=== PATIENT | male | born 1970 | race Caucasian/White ===

== ENCOUNTER 2017-08-02 00:17 | Emergency (ER) | payer OTHER ==
[2017-08-02 00:30] VITALS: BP 111/70
--- NOTE | 2017-08-02 00:58 | EDM.PDOC ---
ED HPI GENERAL MEDICAL PROBLEM - General Chief Complaint: General Stated Complaint: MEDICAL CLEARANCE Time Seen by Provider: 08/02/17 00:55 - History of Present Illness INITIAL COMMENTS - FREE TEXT/NARRATIVE: HISTORY AND PHYSICAL: History of present illness: Patient is 47-year-old white male with history of diabetes presents with concern of medical clearance per [facility] patient denies any other concern. Review of systems: As per history of present illness and below otherwise all systems reviewed and negative. Past medical history: As per history of present illness and as reviewed below otherwise noncontributory. Surgical history: As per history of present illness and as reviewed below otherwise noncontributory. Social history: No reported history of drug or alcohol abuse. Family history: As per history of present illness and as reviewed below otherwise noncontributory. Physical exam: HEENT: Atraumatic, normocephalic, pupils reactive, negative for conjunctival pallor or scleral icterus, mucous membranes moist, throat clear, neck supple, nontender, trachea midline. Lungs: Clear to auscultation, breath sounds equal bilaterally, chest nontender. Heart: S1S2, regular, negative for clicks, rubs, or JVD. Abdomen: Soft, nondistended, nontender. Negative for masses or hepatosplenomegaly. Negative for costovertebral tenderness. Pelvis: Stable nontender. Genitourinary: Deferred. Rectal: Deferred. Extremities: Atraumatic, negative for cords or calf pain. Neurovascular unremarkable. Neuro: Awake, alert, oriented. Cranial nerves II through XII unremarkable. Cerebellum unremarkable. Motor and sensory unremarkable throughout. Exam nonfocal. Diagnostics: None Therapeutics: None Impression: #1 medically clear for incarceration #2 history insulin dependent diabetes Definitive disposition and diagnosis as appropriate pending reevaluation and review of above. - Related Data Allergies Allergy/AdvReac Type Severity Reaction Status Date / Time No Known Allergies Allergy Verified 09/06/16 22:53 Home Meds: Home Meds Insulin NPH/Insulin Reg,Human [NovoLIN 70-30] 35 unit SUBCUT BID 05/01/15 [ History] Insulin Regular, Human [HumuLIN R] 0 unit SUBCUT BIDAC 05/01/15 [History] Insulin Isophane NPH, Human [NovoLIN N] 35 unit SUBCUT BIDAC #1 vial 09/07/16 [ Rx] Insulin Regular, Human [Novolin R] 1 unit SQ TID #1 vial 09/07/16 [Rx] Syring W-Ndl,Disp,Insul,0.3 ml [Insulin Syringe] 1 each SQ TID #20 disp.syrin [Rx] Past Medical History HEENT History: Reports: Other (See Below) Other HEENT History: broken/missing teeth Gastrointestinal History: Reports: None Musculoskeletal History: Reports: None Psychiatric History: Reports: None, Anxiety, Depression Endocrine/Metabolic History: Reports: Diabetes, Type I Hematologic History: Reports: None Dermatologic History: Reports: None - Infectious Disease History 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, MRSA - Past Surgical History HEENT Surgical History: Reports: Other (See Below) Social & Family History - Family History Family Medical History: Noncontributory Cardiac: Reports: Other (See Below) Other Cardiac Family History: heart disease Neurological: Reports: CVA - Tobacco Use Smoking Status *Q: Current Every Day Smoker Years of Tobacco use: 15 Packs/Tins Daily: 1 Used Tobacco, but Quit: No Second Hand Smoke Exposure: Yes - Recreational Drug Use Recreational Drug Use: No Drug Use in Last 12 Months: Yes Recreational Drug Type: Reports: Marijuana/Hashish Recreational Drug Use Frequency: Rarely Recreational Drug Last Use: two weeks ago ED ROS GENERAL - Review of Systems Review Of Systems: ROS reveals no pertinent complaints other than HPI. ED EXAM, GENERAL - Physical Exam Exam: See Below (See dictation) Course - Vital Signs Last Recorded V/S: Last Vital Signs Temp 36.2 C 08/02/17 00:19 Pulse 70 08/02/17 00:19 Resp 16 08/02/17 00:19 BP 111/70 08/02/17 00:19 Pulse Ox 95 08/02/17 00:19 - Orders/Labs/Meds Labs: Laboratory Tests 08/02/17 Range/Units 00:26 POC Glucose 92 (60-110) mg/dL Departure - Departure Time of Disposition: 00:57 Disposition: Home, Self-Care 01 Condition: Good Clinical Impression: Medical clearance for incarceration, Insulin dependent diabetes mellitus - Discharge Information Referrals: PCP,None [Primary Care Provider] - Additional Instructions: The following information is given to patients seen in the emergency department who are being discharged to home. This information is to outline your options for follow-up care. We provide all patients seen in our emergency department with a follow-up referral. The need for follow-up, as well as the timing and circumstances, are variable depending upon the specifics of your emergency department visit. If you don't have a primary care physician on staff, we will provide you with a referral. We always advise you to contact your personal physician following an emergency department visit to inform them of the circumstance of the visit and for follow-up with them and/or the need for any referrals to a consulting specialist. The emergency department will also refer you to a specialist when appropriate. This referral assures that you have the opportunity for followup care with a specialist. All of these measure are taken in an effort to provide you with optimal care, which includes your followup. Under all circumstances we always encourage you to contact your private physician who remains a resource for coordinating your care. When calling for followup care, please make the office aware that this follow-up is from your recent emergency room visit. If for any reason you are refused follow-up, please contact the [facility] emergency department at and asked to speak to the emergency department charge nurse. Insulin as prescribed follow-up primary medical doctor 1-2 days return as needed as discussed
== END 2017-08-02 01:00 | disposition home or self-care (01) ==
LOC: MW.ED 00:17
DX: Z02.89 Encounter for other administrative examinations (principal); E10.9 Type 1 diabetes mellitus without complications; F17.210 Nicotine dependence, cigarettes, uncomplicated; Z79.4 Long term (current) use of insulin
CPT/HCPCS: 82962; 99282; 99283

== ENCOUNTER 2018-07-15 02:39 | Emergency (ER) | payer OTHER ==
--- NOTE | 2018-07-15 02:52 | EDM.PDOC ---
ED HPI GENERAL MEDICAL PROBLEM - General Chief Complaint: General Stated Complaint: MEDICAL CLEARANCE Time Seen by Provider: 07/15/18 02:51 Source of Information: Reports: Patient History Limitations: Reports: No Limitations - History of Present Illness INITIAL COMMENTS - FREE TEXT/NARRATIVE: HISTORY AND PHYSICAL: History of present illness: 48-year-old male presenting to emergency department with law enforcement for medical clearance. Patient is a type I diabetic. Initial blood sugar was 119 in emergency department. States that he is in fairly good control however his last A1c was 8. He sees the [facility] for his medical care. He currently has no medical complaints. Denies any chest pain, palpitations, shortness breath, syncopal episodes, or focal neurologic episodes. Review of systems: As per history of present illness and below otherwise all systems reviewed and negative. Past medical history: As per history of present illness and as reviewed below otherwise noncontributory. Surgical history: As per history of present illness and as reviewed below otherwise noncontributory. Social history: No reported history of drug or alcohol abuse. Family history: As per history of present illness and as reviewed below otherwise noncontributory. Physical exam: HEENT: Atraumatic, normocephalic, pupils reactive, negative for conjunctival pallor or scleral icterus, mucous membranes moist, throat clear, neck supple, nontender, trachea midline. Lungs: Clear to auscultation, breath sounds equal bilaterally, chest nontender. Heart: S1S2, regular, negative for clicks, rubs, or JVD. Abdomen: Soft, nondistended, nontender. Negative for masses or hepatosplenomegaly. Negative for costovertebral tenderness. Pelvis: Stable nontender. Genitourinary: Deferred. Rectal: Deferred. Extremities: Atraumatic, negative for cords or calf pain. Neurovascular unremarkable. Neuro: Awake, alert, oriented. Cranial nerves II through XII unremarkable. Cerebellum unremarkable. Motor and sensory unremarkable throughout. Exam nonfocal. Diagnostics: [] Therapeutics: [] Impression: Medical clearance Plan: Patient's blood sugar was 119. He is a type I diabetic. Did instruct him to follow up with the [facility] for his basic medical care. In addition, I did tell him to return to the emergency department immediately if he has any new or worsening symptoms. Definitive disposition and diagnosis as appropriate pending reevaluation and review of above. - Related Data Allergies Allergy/AdvReac Type Severity Reaction Status Date / Time No Known Allergies Allergy Verified 07/15/18 02:52 Home Meds: Home Meds Insulin NPH/Insulin Reg,Human [NovoLIN 70-30] 45 unit SUBCUT BID 05/01/15 [ History] Insulin Regular, Human [HumuLIN R] 0 unit SUBCUT BIDAC 05/01/15 [History] Insulin Regular, Human [Novolin R] 1 unit SQ TID #1 vial 09/07/16 [Rx] Syring W-Ndl,Disp,Insul,0.3 ml [Insulin Syringe] 1 each SQ TID #20 disp.syrin [Rx] Insulin Isophane NPH, Human [NovoLIN N] 45 unit SUBCUT BIDAC 07/15/18 [History] Past Medical History HEENT History: Reports: Other (See Below) Other HEENT History: broken/missing teeth Gastrointestinal History: Reports: None Musculoskeletal History: Reports: None Psychiatric History: Reports: None, Anxiety, Depression Endocrine/Metabolic History: Reports: Diabetes, Type I Hematologic History: Reports: None Dermatologic History: Reports: None - Infectious Disease History 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 ED EXAM, GENERAL - Physical Exam Exam: See Below Departure - Departure Time of Disposition: 02:57 Disposition: DC/Tfer to Court of Law En 21 Condition: Good Clinical Impression: Medical clearance for incarceration - Discharge Information Referrals: PCP,None [Primary Care Provider] - Forms: ED Department Discharge Additional Instructions: My general discharge The following information is given to patients seen in the emergency department who are being discharged to home. This information is to outline your options for follow-up care. We provide all patients seen in our emergency department with a follow-up referral. The need for follow-up, as well as the timing and circumstances, are variable depending upon the specifics of your emergency department visit. If you don't have a primary care physician on staff, we will provide you with a referral. We always advise you to contact your personal physician following an emergency department visit to inform them of the circumstance of the visit and for follow-up with them and/or the need for any referrals to a consulting specialist. The emergency department will also refer you to a specialist when appropriate. This referral assures that you have the opportunity for follow-up care with a specialist. All of these measure are taken in an effort to provide you with optimal care, which includes your follow-up. Under all circumstances we always encourage you to contact your private physician who remains a resource for coordinating your care. When calling for follow-up care, please make the office aware that this follow-up is from your recent emergency room visit. If for any reason you are refused follow-up, please contact the [facility] Emergency Department at and asked to speak to the emergency department charge nurse. [facility] Return to emergency department if any new or worsening symptoms.
[2018-07-15 02:57] VITALS: BP 115/70
== END 2018-07-15 03:02 ==
LOC: MW.ED 02:39
DX: Z02.89 Encounter for other administrative examinations (principal); E10.9 Type 1 diabetes mellitus without complications
CPT/HCPCS: 82962; 99282

== ENCOUNTER 2018-07-17 01:31 | Emergency (ER) | payer OTHER ==
--- NOTE | 2018-07-17 01:33 | EDM.PDOC ---
ED HPI GENERAL MEDICAL PROBLEM - General Stated Complaint: LOW BLOOD SUGAR Time Seen by Provider: 07/17/18 01:32 Source of Information: Reports: Patient History Limitations: Reports: No Limitations - History of Present Illness INITIAL COMMENTS - FREE TEXT/NARRATIVE: HISTORY AND PHYSICAL: History of present illness: 48-year-old male presenting to emergency department from longterm secondary to low blood sugar with past medical history type 1 diabetes. Patient states that he could tell his blood sugar was low and notified staff. States that he did take his sliding scale 3 units R after dinner tonight and 35 units of Novolin N. Denies any loss of consciousness or altered mental status. When EMS arrived his blood sugar was 27. They did give him oral glucose at that time. On arrival in the emergency department blood sugar was 97. We did give him some juice as well as a sandwich. Patient did feel significantly better. Denies any chest pain, palpitations, shortness of breath, syncopal episodes, or focal neurologic deficits. Repeat CBC and CMP showed a blood sugar of 44. Patient was given juice and dextrose gel. Repeat Blood sugar 130. Patient states he does have times when his blood sugar runs low and obviously being in longterm and not on his normal routine affects it. He does normally take 45 units of Novolin N. Repeat sugar 40 minutes later was 139. Review of systems: As per history of present illness and below otherwise all systems reviewed and negative. Past medical history: As per history of present illness and as reviewed below otherwise noncontributory. Surgical history: As per history of present illness and as reviewed below otherwise noncontributory. Social history: No reported history of drug or alcohol abuse. Family history: As per history of present illness and as reviewed below otherwise noncontributory. Physical exam: HEENT: Atraumatic, normocephalic, pupils reactive, negative for conjunctival pallor or scleral icterus, mucous membranes moist, throat clear, neck supple, nontender, trachea midline. Lungs: Clear to auscultation, breath sounds equal bilaterally, chest nontender. Heart: S1S2, regular, negative for clicks, rubs, or JVD. Abdomen: Soft, nondistended, nontender. Negative for masses or hepatosplenomegaly. Negative for costovertebral tenderness. Pelvis: Stable nontender. Genitourinary: Deferred. Rectal: Deferred. Extremities: Atraumatic, negative for cords or calf pain. Neurovascular unremarkable. Neuro: Awake, alert, oriented. Cranial nerves II through XII unremarkable. Cerebellum unremarkable. Motor and sensory unremarkable throughout. Exam nonfocal. Diagnostics: CBC, CMP Therapeutics: Juice, sandwich Impression: Hypoglycemia in a type I diabetic Plan: Please see above H&P. Patient was observed and repeat sugar showed stabilization of blood sugars in the 130s. Patient was discharged back to law enforcement with instructions to follow-up with primary care provider which is the [facility] and return to emergency department if he has any new or worsening symptoms. Definitive disposition and diagnosis as appropriate pending reevaluation and review of above. - Related Data Allergies Allergy/AdvReac Type Severity Reaction Status Date / Time No Known Allergies Allergy Verified 07/17/18 02:12 Home Meds: Home Meds Insulin NPH/Insulin Reg,Human [NovoLIN 70-30] 35 unit SUBCUT BID 05/01/15 [ History] Insulin Regular, Human [Novolin R] 1 unit SQ QID 07/17/18 [History] Past Medical History HEENT History: Reports: Other (See Below) Other HEENT History: broken/missing teeth Cardiovascular History: Reports: None Respiratory History: Reports: None Gastrointestinal History: Reports: None Genitourinary History: Reports: None Musculoskeletal History: Reports: None Psychiatric History: Reports: None, Anxiety, Depression Endocrine/Metabolic History: Reports: Diabetes, Type I Hematologic History: Reports: None Oncologic (Cancer) History: Reports: None Dermatologic History: Reports: None - Infectious Disease History 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 ED EXAM, GENERAL - Physical Exam Exam: See Below Course - Vital Signs Last Recorded V/S: Last Vital Signs Temp 97.6 F 07/17/18 01:31 Pulse 72 07/17/18 01:31 Resp 18 07/17/18 01:31 BP 124/81 07/17/18 01:31 Pulse Ox 96 07/17/18 01:31 - Orders/Labs/Meds Orders: Active Orders 24 hr Category Date Time Status Blood Glucose Check, Bedside [RC] ONETIME Care 07/17/18 01:30 Active Blood Glucose Check, Bedside [RC] ONETIME Care 07/17/18 02:35 Active Blood Glucose Check, Bedside [RC] ONETIME Care 07/17/18 03:34 Active Labs: Laboratory Tests 07/17/18 07/17/18 07/17/18 Range/Units 01:30 01:30 02:35 WBC 9.10 (4.0-11.0) K/uL RBC 4.64 (4.50-5.90) M/uL Hgb 14.7 (13.0-17.0) g/dL Hct 43.2 (38.0-50.0) % MCV 93.1 (80.0-98.0) fL MCH 31.7 (27.0-32.0) pg MCHC 34.0 (31.0-37.0) g/dL RDW Std Deviation 47.6 (28.0-62.0) fl RDW Coeff of Deo 14 (11.0-15.0) % Plt Count 235 (150-400) K/uL MPV 11.70 (7.40-12.00) fL Neut % (Auto) 47.3 L (48.0-80.0) % Lymph % (Auto) 41.6 H (16.0-40.0) % [place] % (Auto) 9.5 (0.0-15.0) % Eos % (Auto) 1.3 (0.0-7.0) % Baso % (Auto) 0.3 (0.0-1.5) % Neut # (Auto) 4.3 (1.4-5.7) K/uL Lymph # (Auto) 3.8 H (0.6-2.4) K/uL [place] # (Auto) 0.9 H (0.0-0.8) K/uL Eos # (Auto) 0.1 (0.0-0.7) K/uL Baso # (Auto) 0.0 (0.0-0.1) K/uL Nucleated RBC % 0.0 /100WBC Nucleated RBCs # 0 K/uL Sodium 142 (136-148) mmol/L Potassium 3.6 (3.5-5.1) mmol/L Chloride 108 H (98-107) mmol/L Carbon Dioxide 28.3 (21.0-32.0) mmol/L BUN 17 (7.0-18.0) mg/dL Creatinine 0.8 (0.8-1.3) mg/dL Est Cr Clr Drug Dosing 132.03 mL/min Estimated GFR (MDRD) > 60.0 ml/min Glucose 106 (74-106) mg/dL POC Glucose 44 L (60-110) mg/dL Calcium 8.6 (8.5-10.1) mg/dL Total Bilirubin 0.5 (0.2-1.0) mg/dL AST 11 L (15-37) IU/L ALT 23 (14-63) IU/L Alkaline Phosphatase 68 (46-116) U/L Total Protein 6.3 L (6.4-8.2) g/dL Albumin 3.4 (3.4-5.0) g/dL Globulin 2.9 (2.0-3.5) g/dL Albumin/Globulin Ratio 1.2 L (1.3-2.8) 07/17/18 07/17/18 Range/Units 03:35 04:13 WBC (4.0-11.0) K/uL RBC (4.50-5.90) M/uL Hgb (13.0-17.0) g/dL Hct (38.0-50.0) % MCV (80.0-98.0) fL MCH (27.0-32.0) pg MCHC (31.0-37.0) g/dL RDW Std Deviation (28.0-62.0) fl RDW Coeff of Deo (11.0-15.0) % Plt Count (150-400) K/uL MPV (7.40-12.00) fL Neut % (Auto) (48.0-80.0) % Lymph % (Auto) (16.0-40.0) % [place] % (Auto) (0.0-15.0) % Eos % (Auto) (0.0-7.0) % Baso % (Auto) (0.0-1.5) % Neut # (Auto) (1.4-5.7) K/uL Lymph # (Auto) (0.6-2.4) K/uL [place] # (Auto) (0.0-0.8) K/uL Eos # (Auto) (0.0-0.7) K/uL Baso # (Auto) (0.0-0.1) K/uL Nucleated RBC % /100WBC Nucleated RBCs # K/uL Sodium (136-148) mmol/L Potassium (3.5-5.1) mmol/L Chloride (98-107) mmol/L Carbon Dioxide (21.0-32.0) mmol/L BUN (7.0-18.0) mg/dL Creatinine (0.8-1.3) mg/dL Est Cr Clr Drug Dosing mL/min Estimated GFR (MDRD) ml/min Glucose (74-106) mg/dL POC Glucose 130 H 139 H (60-110) mg/dL Calcium (8.5-10.1) mg/dL Total Bilirubin (0.2-1.0) mg/dL AST (15-37) IU/L ALT (14-63) IU/L Alkaline Phosphatase (46-116) U/L Total Protein (6.4-8.2) g/dL Albumin (3.4-5.0) g/dL Globulin (2.0-3.5) g/dL Albumin/Globulin Ratio (1.3-2.8) Meds: Medications Discontinued Medications Generic Name Dose Route Start Last Admin Trade Name Freq PRN Reason Stop Dose Admin Dextrose 31 gm 07/17/18 02:36 07/17/18 03:11 Insta-Glucose PO 07/17/18 02:37 31 gm NOW STA Administration Departure - Departure Time of Disposition: 04:29 Disposition: DC/Tfer to Court of Law En 21 Condition: Good Clinical Impression: Hypoglycemia due to type 1 diabetes mellitus - Discharge Information Referrals: PCP,None [Primary Care Provider] - Additional Instructions: My general discharge The following information is given to patients seen in the emergency department who are being discharged to home. This information is to outline your options for follow-up care. We provide all patients seen in our emergency department with a follow-up referral. The need for follow-up, as well as the timing and circumstances, are variable depending upon the specifics of your emergency department visit. If you don't have a primary care physician on staff, we will provide you with a referral. We always advise you to contact your personal physician following an emergency department visit to inform them of the circumstance of the visit and for follow-up with them and/or the need for any referrals to a consulting specialist. The emergency department will also refer you to a specialist when appropriate. This referral assures that you have the opportunity for follow-up care with a specialist. All of these measure are taken in an effort to provide you with optimal care, which includes your follow-up. Under all circumstances we always encourage you to contact your private physician who remains a resource for coordinating your care. When calling for follow-up care, please make the office aware that this follow-up is from your recent emergency room visit. If for any reason you are refused follow-up, please contact the [facility] Emergency Department at and asked to speak to the emergency department charge nurse. [facility] [address] [place] [id number] Continue to take your medications as prescribed. Return to emergency department if any new or worsening symptoms. - My Orders Last 24 Hours: My Active Orders 07/17/18 01:30 Blood Glucose Check, Bedside [RC] ONETIME 07/17/18 02:35 Blood Glucose Check, Bedside [RC] ONETIME 07/17/18 03:34 Blood Glucose Check, Bedside [RC] ONETIME - Assessment/Plan Last 24 Hours: My Active Orders 07/17/18 01:30 Blood Glucose Check, Bedside [RC] ONETIME 07/17/18 02:35 Blood Glucose Check, Bedside [RC] ONETIME 07/17/18 03:34 Blood Glucose Check, Bedside [RC] ONETIME
[2018-07-17 02:36] LABS: CHLORIDE,CL 108 mmol/L (98-107); SODIUM,NA 142 mmol/L (136-148)
[2018-07-17] MEDS ORDERED: DEXTROSE PO STA (02:36)
[2018-07-17 04:45] VITALS: BP 140/83
== END 2018-07-17 04:45 ==
LOC: MW.ED 01:31
DX: E10.649 Type 1 diabetes mellitus with hypoglycemia without coma (principal)
CPT/HCPCS: 80053; 82962; 85025; 99285; A9270; 99283

== ENCOUNTER 2019-11-26 18:10 | Emergency (ER) | payer OTHER ==
[2019-11-26 18:21] VITALS: PULSE 70
[2019-11-26] MEDS ORDERED: Lidocaine 2% Viscous Solution 15 ML Cup PO ONE (18:27)
[2019-11-26] MEDS ORDERED: Benzocaine 20% Topical Spray UD MUCMEM ONE (18:27)
--- NOTE | 2019-11-26 18:30 | EDM.PDOC ---
ED HPI GENERAL MEDICAL PROBLEM - General Chief Complaint: General Stated Complaint: TOOTHACHE Time Seen by Provider: 11/26/19 18:11 Source of Information: Reports: Patient History Limitations: Reports: No Limitations - History of Present Illness INITIAL COMMENTS - FREE TEXT/NARRATIVE: HISTORY AND PHYSICAL: History of present illness: Patient is a 49-year-old male who presents to the ED today with concern of bottom right tooth pain that has been ongoing off and on over the past 1 week. Patient states he has had dental abscess in the past which she states this feels like the beginning of a potential dental abscess. Patient states he does have an appointment on Tuesday in order to get this tooth removed. Patient states he has been taking [id number] ibuprofen with some relief of symptoms. Patient denies any other symptoms or concerns. Patient denies fever, chills, chest pain, shortness of breath, or cough. Denies headache, neck stiff ness, change in vision, syncope, or near syncope. Denies nausea, vomiting, abdominal pain, diarrhea, constipation, or dysuria. Has not noted any blood in urine or stool. Patient has been eating and drinking appropriately. Review of systems: As per history of present illness and below otherwise all systems reviewed and negative. Past medical history: As per history of present illness and as reviewed below otherwise noncontributory. Surgical history: As per history of present illness and as reviewed below otherwise noncontributory. Social history: See social history for further information Family history: As per history of present illness and as reviewed below otherwise noncontributory. Physical exam: General: Patient is alert, oriented, and in no acute distress. Patient sitting comfortably on exam table. HEENT: Atraumatic, normocephalic, pupils equal and reactive bilaterally, negative for conjunctival pallor or scleral icterus, mucous membranes moist, TMs normal bilaterally, throat clear, neck supple, nontender, trachea midline. No drooling or trismus noted. No meningeal signs. No hot potato voice noted. Tooth #31 is painful to palpation with edema of the surrounding gumline. No adjacent edema of the mandible. Patient does have full range of motion of the jaw without pain or difficulty. Generalized poor dentition Lungs: Clear to auscultation, breath sounds equal bilaterally, chest nontender. Heart: S1S2, regular rate and rhythm without overt murmur Abdomen: Soft, nondistended, nontender. Negative for masses or hepatosplenomegaly. Negative for costovertebral tenderness. Pelvis: Stable nontender. Genitourinary: Deferred. Rectal: Deferred. Skin: Intact, warm, dry. No lesions or rashes noted. Extremities: Atraumatic, negative for cords or calf pain. Neurovascular unremarkable. Neuro: Awake, alert, oriented. Cranial nerves II through XII unremarkable. Cerebellum unremarkable. Motor and sensory unremarkable throughout. Exam nonfocal. Notes: Discussed importance for follow-up with a dentist. Voices understanding and is agreeable to plan of care. Denies any further questions or concerns at this time. Diagnostics: None Therapeutics: Dental balls Prescription: Clindamycin Impression: Dental abscess Plan: 1. Please take medication as prescribed. 2. Tylenol and/or ibuprofen as directed and as needed for pain management. 3. "Tooth Balls" have been given to you; apply along the gumline every 2-3 hours as needed. Do not swallow these; external use only. 4. Follow-up with a dentist for definitive care. Return to the ED as needed and as discussed. Definitive disposition and diagnosis as appropriate pending reevaluation and review of above. right lower dental pain Pain Score (Numeric/FACES): 10 - Related Data Allergies Allergy/AdvReac Type Severity Reaction Status Date / Time No Known Allergies Allergy Verified 07/17/18 02:12 Home Meds: Home Meds Insulin NPH/Insulin Reg,Human [NovoLIN 70-30] 35 unit SUBCUT BID 05/01/15 [ History] Insulin Regular, Human [Novolin R] 1 unit SQ QID 07/17/18 [History] Clindamycin HCl 300 mg PO TID 7 Days #21 capsule 11/26/19 [Rx] Past Medical History HEENT History: Reports: Other (See Below) Other HEENT History: broken/missing teeth Cardiovascular History: Reports: None Respiratory History: Reports: None Gastrointestinal History: Reports: None Genitourinary History: Reports: None Musculoskeletal History: Reports: None Psychiatric History: Reports: None Endocrine/Metabolic History: Reports: Diabetes, Type I Hematologic History: Reports: None Oncologic (Cancer) History: Reports: None Dermatologic History: Reports: None - Infectious Disease History 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, MRSA - Past Surgical History HEENT Surgical History: Reports: Other (See Below) Social & Family History - Family History Family Medical History: Noncontributory Cardiac: Reports: Other (See Below) Other Cardiac Family History: heart disease Neurological: Reports: CVA - Tobacco Use Smoking Status *Q: Current Every Day Smoker Years of Tobacco use: 20 Packs/Tins Daily: 0.5 - Recreational Drug Use Recreational Drug Use: Yes Drug Use in Last 12 Months: Yes Recreational Drug Type: Reports: Marijuana/Hashish Recreational Drug Use Frequency: Socially ED ROS GENERAL - Review of Systems Review Of Systems: Comprehensive ROS is negative, except as noted in HPI. ED EXAM, GENERAL - Physical Exam Exam: See Below (see dictation) Course - Vital Signs Last Recorded V/S: Last Vital Signs Temp 97.4 F 11/26/19 18:18 Pulse 70 11/26/19 18:18 Resp 16 11/26/19 18:18 BP 146/92 H 11/26/19 18:18 Pulse Ox 98 11/26/19 18:18 Departure - Departure Time of Disposition: 18:29 Disposition: Home, Self-Care 01 Clinical Impression: Dental abscess - Discharge Information Prescriptions: Clindamycin HCl 300 mg PO TID 7 Days #21 capsule Referrals: [facility] [Primary Care Provider] - Additional Instructions: The following information is given to patients seen in the emergency department who are being discharged to home. This information is to outline your options for follow-up care. We provide all patients seen in our emergency department with a follow-up referral. The need for follow-up, as well as the timing and circumstances, are variable depending upon the specifics of your emergency department visit. If you don't have a primary care physician on staff, we will provide you with a referral. We always advise you to contact your personal physician following an emergency department visit to inform them of the circumstance of the visit and for follow-up with them and/or the need for any referrals to a consulting specialist. The emergency department will also refer you to a specialist when appropriate. This referral assures that you have the opportunity for follow-up care with a specialist. All of these measure are taken in an effort to provide you with optimal care, which includes your follow-up. Under all circumstances we always encourage you to contact your private physician who remains a resource for coordinating your care. When calling for follow-up care, please make the office aware that this follow-up is from your recent emergency room visit. If for any reason you are refused follow-up, please contact the [facility] at and asked to speak to the emergency department charge nurse. [facility] [address] [place] [address] [id number] 1. Please take medication as prescribed. 2. Tylenol and/or ibuprofen as directed and as needed for pain management. 3. "Tooth Balls" have been given to you; apply along the gumline every 2-3 hours as needed. Do not swallow these; external use only. 4. Follow-up with a dentist for definitive care. Return to the ED as needed and as discussed. Sepsis Event Note - Evaluation Sepsis Screening Result: No Definite Risk - Focused Exam Vital Signs: Vital Signs Temp Pulse Resp BP Pulse Ox 11/26/19 18:18 97.4 F 70 16 146/92 H 98 Date Exam was Performed: 11/26/19 Time Exam was Performed: 18:26
[2019-11-26 18:44] VITALS: BP 154/93
== END 2019-11-26 18:43 | disposition home or self-care (01) ==
LOC: MW.ED 18:10
DX: K04.7 Periapical abscess without sinus (principal); F17.210 Nicotine dependence, cigarettes, uncomplicated; E10.9 Type 1 diabetes mellitus without complications
CPT/HCPCS: 99282; A9270

== ENCOUNTER 2019-12-01 22:33 | Emergency (ER) | payer OTHER ==
[2019-12-02] MEDS ORDERED: Sodium Chloride 0.9% 1,000 ML IV ONE (01:45)
[2019-12-02] MEDS ORDERED: Ondansetron 4 MG/2 ML SDV IVPUSH ONE (01:45)
[2019-12-02] MEDS ORDERED: Cefepime 2 GM in Premix Bag 1 BAG IV ONE (01:49)
[2019-12-02 02:23] LABS: BLOOD UREA NITROGEN,BUN 8 mg/dL (7.0-18.0); CHLORIDE,CL 100 mmol/L (98-107); GLUCOSE RANDOM 321 mg/dL (74-106); POTASSIUM,K 3.7 mmol/L (3.5-5.1); SODIUM,NA 137 mmol/L (136-148)
[2019-12-02 02:24] VITALS: BP 119/72; PULSE 77
[2019-12-02] MEDS ORDERED: metroNIDAZOLE/Normal Saline 500 MG in Premix Bag 1 BAG IV ONE (02:27)
[2019-12-02] MEDS ORDERED: metroNIDAZOLE/Normal Saline 100 ML ONE (02:29)
--- NOTE | 2019-12-02 02:33 | EDM.PDOC ---
ED HPI GENERAL MEDICAL PROBLEM - General Chief Complaint: ENT Problem Stated Complaint: THROAT INFECTION Time Seen by Provider: 12/02/19 01:39 - History of Present Illness INITIAL COMMENTS - FREE TEXT/NARRATIVE: Pt with a pmh of type 1 DM presents with throat swelling, difficulty swallowing , fever and facial swelling. Pt had tooth 30 pulled due to a periapical abscess 4 days ago and has been on clindamycin. symptom started to worsen over the last 24 hours. No drooling and pt still able to tolerated po liquids. right lower jaw pain Pain Score (Numeric/FACES): 8 - Related Data Allergies Allergy/AdvReac Type Severity Reaction Status Date / Time No Known Allergies Allergy Verified 07/17/18 02:12 Home Meds: Home Meds Insulin NPH/Insulin Reg,Human [NovoLIN 70-30] 35 unit SUBCUT BID 05/01/15 [ History] Insulin Regular, Human [Novolin R] 1 unit SQ QID 07/17/18 [History] Clindamycin HCl 300 mg PO TID 10 Days #30 capsule 11/26/19 [Rx] Clindamycin HCl 300 mg PO TID 7 Days #21 capsule 11/26/19 [Rx] Diclofenac Sodium [Voltaren] 75 mg PO BIDMEALS PRN #15 tab.cr 11/26/19 [Rx] Diclofenac Sodium [Voltaren] 75 mg PO BIDMEALS PRN #15 tab.cr 11/26/19 [Rx] Past Medical History - Past Health History Medical/Surgical History: Denies Medical/Surgical History HEENT History: Reports: Other (See Below) Other HEENT History: broken/missing teeth Cardiovascular History: Reports: None Respiratory History: Reports: None Gastrointestinal History: Reports: None Genitourinary History: Reports: None Musculoskeletal History: Reports: None Neurological History: Reports: None Psychiatric History: Reports: None Endocrine/Metabolic History: Reports: Diabetes, Type I Hematologic History: Reports: None Oncologic (Cancer) History: Reports: None Dermatologic History: Reports: None - Infectious Disease History 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 - Past Surgical History HEENT Surgical History: Reports: Other (See Below) Social & Family History - Family History Family Medical History: Noncontributory Cardiac: Reports: Other (See Below) Other Cardiac Family History: heart disease Neurological: Reports: CVA - Tobacco Use Smoking Status *Q: Current Every Day Smoker Years of Tobacco use: 19 Packs/Tins Daily: 0.5 - Caffeine Use Caffeine Use: Reports: Coffee, Soda - Recreational Drug Use Recreational Drug Use: Yes Drug Use in Last 12 Months: Yes Recreational Drug Type: Reports: Marijuana/Hashish ED ROS ENT - Review of Systems Review Of Systems: See Below Constitutional: Reports: Fever, Chills, Malaise, Weakness HEENT: Reports: Throat Pain, Throat Swelling Respiratory: Denies: Shortness of Breath, Wheezing Cardiovascular: Reports: No Symptoms GI/Abdominal: Reports: No Symptoms Skin: Reports: No Symptoms ED EXAM, ENT - Physical Exam Exam: See Below Exam Limited By: No Limitations General Appearance: Alert, WD/WN, No Apparent Distress Mouth/Throat: Hoarse Voice, Throat Swelling, Trismus, Other (Moderate trismus, Prulent discharge from tooth socket, woody edema of the floor of the mouth. ) Head: Atraumatic, Normocephalic Respiratory/Chest: No Respiratory Distress, Lungs Clear, Normal Breath Sounds. No: Stridor Cardiovascular: Regular Rate, Rhythm, No Murmur GI/Abdominal: No Distention Course - Vital Signs Last Recorded V/S: Last Vital Signs Temp 98.3 F 12/02/19 02:23 Pulse 77 12/02/19 02:23 Resp 16 12/02/19 02:23 BP 119/72 12/02/19 02:23 Pulse Ox 96 12/02/19 02:23 - Orders/Labs/Meds Orders: Active Orders 24 hr Category Date Time Status CBC WITH AUTO DIFF [HEME] Stat Lab 12/02/19 01:53 Results CULTURE BLOOD [BC] Stat Lab 12/02/19 02:06 Received CULTURE BLOOD [BC] Stat Lab 12/02/19 02:16 Received GLUCOSE,POC [POC] Routine Lab 12/02/19 02:22 Received Sodium Chloride 0.9% [Normal Saline] 1,000 ml Med 12/02/19 01:45 Active IV BOLUS metroNIDAZOLE/Normal Saline [Flagyl 500 MG in NS 100 ML Med 12/02/19 02:27 Ordered ] 500 mg Premix Bag 1 bag IV ONETIME Blood Culture x2 Reflex Set [OM.PC] Stat Oth 12/02/19 01:47 Ordered Medication Orders Sodium Chloride (Normal Saline) 1,000 mls @ 999 mls/hr IV BOLUS ONE Stop: 12/02/19 02:45 Last Admin: 12/02/19 01:57 Dose: 999 mls/hr Labs: Laboratory Tests 12/02/19 12/02/19 12/02/19 Range/Units 01:53 01:53 01:53 WBC 15.73 H (4.0-11.0) K/uL RBC 4.38 L (4.50-5.90) M/uL Hgb 13.6 (13.0-17.0) g/dL Hct 40.5 (38.0-50.0) % MCV 92.5 (80.0-98.0) fL MCH 31.1 (27.0-32.0) pg MCHC 33.6 (31.0-37.0) g/dL RDW Std Deviation 45.2 (28.0-62.0) fl RDW Coeff of Deo 13 (11.0-15.0) % Plt Count 227 (150-400) K/uL MPV 12.00 (7.40-12.00) fL Add Manual Diff YES Nucleated RBC % 0.0 /100WBC Nucleated RBCs # 0 K/uL Lactate (0.20-2.00) mmol/L Sodium 137 (136-148) mmol/L Potassium 3.7 (3.5-5.1) mmol/L Chloride 100 (98-107) mmol/L Carbon Dioxide 26.0 (21.0-32.0) mmol/L BUN 8 (7.0-18.0) mg/dL Creatinine 0.8 (0.8-1.3) mg/dL Est Cr Clr Drug Dosing 130.56 mL/min Estimated GFR (MDRD) > 60.0 ml/min Glucose 321 H (74-106) mg/dL Calcium 8.4 L (8.5-10.1) mg/dL Total Bilirubin 0.3 (0.2-1.0) mg/dL AST 25 (15-37) IU/L ALT 29 (14-63) IU/L Alkaline Phosphatase 101 (46-116) U/L Total Protein 6.4 (6.4-8.2) g/dL Albumin 2.7 L (3.4-5.0) g/dL Globulin 3.7 (2.6-4.0) g/dL Albumin/Globulin Ratio 0.7 L (0.9-1.6) Ketones NEGATIVE (NEG) 12/02/19 Range/Units 01:53 WBC (4.0-11.0) K/uL RBC (4.50-5.90) M/uL Hgb (13.0-17.0) g/dL Hct (38.0-50.0) % MCV (80.0-98.0) fL MCH (27.0-32.0) pg MCHC (31.0-37.0) g/dL RDW Std Deviation (28.0-62.0) fl RDW Coeff of Deo (11.0-15.0) % Plt Count (150-400) K/uL MPV (7.40-12.00) fL Add Manual Diff Nucleated RBC % /100WBC Nucleated RBCs # K/uL Lactate 1.5 (0.20-2.00) mmol/L Sodium (136-148) mmol/L Potassium (3.5-5.1) mmol/L Chloride (98-107) mmol/L Carbon Dioxide (21.0-32.0) mmol/L BUN (7.0-18.0) mg/dL Creatinine (0.8-1.3) mg/dL Est Cr Clr Drug Dosing mL/min Estimated GFR (MDRD) ml/min Glucose (74-106) mg/dL Calcium (8.5-10.1) mg/dL Total Bilirubin (0.2-1.0) mg/dL AST (15-37) IU/L ALT (14-63) IU/L Alkaline Phosphatase (46-116) U/L Total Protein (6.4-8.2) g/dL Albumin (3.4-5.0) g/dL Globulin (2.6-4.0) g/dL Albumin/Globulin Ratio (0.9-1.6) Ketones (NEG) Meds: Medications Generic Name Dose Route Start Last Admin Trade Name Freq PRN Reason Stop Dose Admin Sodium Chloride 1,000 mls @ 999 mls/hr 12/02/19 01:45 12/02/19 01:57 Normal Saline IV 12/02/19 02:45 999 mls/hr BOLUS ONE Administration Discontinued Medications Generic Name Dose Route Start Last Admin Trade Name Freq PRN Reason Stop Dose Admin Cefepime HCl 2 gm/ Premix 50 mls @ 100 mls/hr 12/02/19 01:49 12/02/19 02:16 IV 12/02/19 02:18 100 mls/hr ONETIME ONE Administration Ondansetron HCl 4 mg 12/02/19 01:45 12/02/19 01:57 Zofran IVPUSH 12/02/19 01:46 4 mg ONETIME ONE Administration - Re-Assessments/Exams Free Text/Narrative Re-Assessment/Exam: 12/02/19 02:33 Clinical presentation and PE consistent with Ludwigs angina due to infected tooth socket. I spoke with Dr. Pablo with [facility] who accepts the pt to the ed for evaluation. Cefepime and flagyl given. Flight crew call due to severity of oral exam and to quickly get the pt to the specialist for further evalutation. Pt in agreement with plan. Departure - Departure Time of Disposition: 02:36 Disposition: DC/Tfer to Acute Hospital 02 Condition: Fair Clinical Impression: Jeff's angina - Discharge Information *PRESCRIPTION DRUG MONITORING PROGRAM REVIEWED*: Not Applicable *COPY OF PRESCRIPTION DRUG MONITORING REPORT IN PATIENT RYAN: Not Applicable Referrals: Bear Davis, [facility] [Primary Care Provider] - Sepsis Event Note - Evaluation Sepsis Screening Result: Possible Sepsis Risk - Focused Exam Vital Signs: Vital Signs Temp Pulse Resp BP Pulse Ox 12/02/19 02:23 98.3 F 77 16 119/72 96 12/01/19 23:46 100.2 F 97 18 119/64 95 Date Exam was Performed: 12/02/19 Time Exam was Performed: 02:28 - My Orders Last 24 Hours: My Active Orders 12/02/19 01:45 Sodium Chloride 0.9% [Normal Saline] 1,000 ml IV BOLUS 12/02/19 01:47 Blood Culture x2 Reflex Set [OM.PC] Stat 12/02/19 01:53 CBC WITH AUTO DIFF [HEME] Stat 12/02/19 02:06 CULTURE BLOOD [BC] Stat 12/02/19 02:16 CULTURE BLOOD [BC] Stat 12/02/19 02:22 GLUCOSE,POC [POC] Routine 12/02/19 02:27 metroNIDAZOLE/Normal Saline [Flagyl 500 MG in NS 100 ML] 500 mg Premix Bag 1 bag IV ONETIME - Assessment/Plan Last 24 Hours: My Active Orders 12/02/19 01:45 Sodium Chloride 0.9% [Normal Saline] 1,000 ml IV BOLUS 12/02/19 01:47 Blood Culture x2 Reflex Set [OM.PC] Stat 12/02/19 01:53 CBC WITH AUTO DIFF [HEME] Stat 12/02/19 02:06 CULTURE BLOOD [BC] Stat 12/02/19 02:16 CULTURE BLOOD [BC] Stat 12/02/19 02:22 GLUCOSE,POC [POC] Routine 12/02/19 02:27 metroNIDAZOLE/Normal Saline [Flagyl 500 MG in NS 100 ML] 500 mg Premix Bag 1 bag IV ONETIME
== END 2019-12-02 02:44 ==
LOC: MW.ED 22:33
DX: K12.2 Cellulitis and abscess of mouth (principal); E10.9 Type 1 diabetes mellitus without complications; F17.210 Nicotine dependence, cigarettes, uncomplicated; Z79.4 Long term (current) use of insulin
CPT/HCPCS: 36415; 80053; 82009; 82962; 83605; 85025; 87040; 96365; 96375; 99285; J0692; J2405; J3490; J7030; 99283

== ENCOUNTER 2019-12-25 17:20 | Emergency (ER) | payer OTHER ==
[2019-12-25] MEDS ORDERED: Ampicillin/Sulbactam Na 3 GM in Sodium Chloride 0.9% 100 ML IV ONE (17:41)
[2019-12-25] MEDS ORDERED: Sodium Chloride 0.9% 1,000 ML IV ONE (17:41)
[2019-12-25 18:13] LABS: BLOOD UREA NITROGEN,BUN 14 mg/dL (7.0-18.0); CARBON DIOXIDE,CO2 26.2 mmol/L (21.0-32.0); CHLORIDE,CL 106 mmol/L (98-107); GLUCOSE RANDOM 191 mg/dL (74-106); POTASSIUM,K 4.2 mmol/L (3.5-5.1); SODIUM,NA 142 mmol/L (136-148)
[2019-12-25] MEDS ORDERED: Ampicillin/Sulbactam Na 3 GM Vial ONE (18:13)
[2019-12-25] MEDS: Sodium Chloride 0.9% 100 ML ONE ×2 (18:23→18:28)
[2019-12-25] MEDS ORDERED: Iopamidol 755 MG/ML 500 ML Multipack Bottle IVPUSH STA (18:40)
--- NOTE | 2019-12-25 18:59 | CT ---
CT soft tissue neck Technique: Multiple axial sections were obtained through the neck. Intravenous contrast was utilized. Findings: Airway shows no compromise. Visualized paranasal sinuses show nothing acute. There appears to have been recent dental on the right side. No discrete dental abscess is appreciated. Submandibular and parotid salivary glands are unremarkable. No low density abscess is seen. No prevertebral soft tissue swelling is seen. Epiglottis is normal in size. Bone window settings were reviewed which shows very mild degenerative change within the cervical spine. Multiple small scattered lymph nodes within both sides of the neck which are most likely incidental as they are symmetric. Impression: 1. No findings of abscess. Other findings believed to be incidental as described above. Diagnostic code #2 This report was dictated in [place] Standard Time
--- NOTE | 2019-12-25 19:08 | EDM.PDOC ---
ED HPI GENERAL MEDICAL PROBLEM - General Chief Complaint: ENT Problem Stated Complaint[facility] Time Seen by Provider: 12/25/19 17:35 - History of Present Illness INITIAL COMMENTS - FREE TEXT/NARRATIVE: HPI 49-year-old diabetic male with poor glycemic control and recently diagnosed blood was angina presents on urging of his [place] ENT due to concern of worsening submandibular swelling under his tongue and neck for 48 hours, no fevers or chills. Patient reports that he is taking 3 tablets (150 mg each) of clindamycin last 48 hours. Patient appears unaware that he was prescribed 3 tablets (450 mg) TID. Clinic note dated 12/25/2019 reviewed and notable for: 1. A1c in October 26.4, fasting blood sugar today 380. 2. Patient hospitalized treated with IV Unasyn for dental abscesses and liquids angina following a tooth extraction 12/02, discharged on Augmentin 10 days, saw ENT last week and started on clindamycin yesterday (mail-order). M/S/F/SocHx notable for: please see HPI; remainder reviewed with patient and in chart. ROS: Negative constitutional, eye, cardiovascular, pulmonary, GI, , MSK, skin , neurologic, psychiatric, endocrine unless noted in the HPI. Exam HR 83, RR 18, BP 108/71, T 37.0C, SaO2 95% on room air. Gen: Pleasant, non-toxic appearing, resting comfortably. HEENT: the mid submandibular region the mouth has approximately 4 cm diameter area of firm mildly tender swelling without erythema, warmth, or fluctuance, floor the mouth is without visible swelling, patient comfortably swallowing and conversant, otherwise NC, AT, PEERL, EOMI. Resp: unlabored respirations with a normal work of breathing. Card: extremities warm and well perfused. GI: Non-tender to palpation throughout all quadrants, no focal tenderness at McBurney's point, negative Joseph's sign, non-distended, no rebound or guarding. : No suprapubic tenderness to palpation. MSK: No visible deformities, strength and tone without visually appreciable deficit. Skin: Normal color with no visible lesions. Neuro: alert and oriented 3, no facial asymmetry, vision and hearing WNL. Psych: Mood and affect appropriate. Labs / Imaging: WBC 7.46, HB 13.4, ESR 7, lactic acid 1.6, sodium 142, potassium 4.2, glucose 189, CRP 0.50. CT Neck: Airway shows no compromise. Visualized paranasal sinuses show nothing acute. There appears to have been recent dental on the right side. No discrete dental abscess is appreciated Submandibular and parotid salivary glands are unremarkable. No low density abscess is seen. No prevertebral soft tissue swelling is seen. Epiglottis is normal in size. Bone window settings were reviewed which shows very mild degenerative change within the cervical spine. Multiple small scattered lymph nodes within both sides of the neck which are most likely incidental as they are symmetric. Impression: 1. No findings of abscess. Other findings believed to be incidental as described above. MDM Previous chart, nursing note, labs, imaging, and vitals reviewed. A: 49-year-old diabetic male with poor glycemic control and recently diagnosed blood was angina presents [facility] due to concern of worsening submandibular swelling under his tongue and neck for 48 hours, no fevers or chills. DDx: Ludgwigs angina, abscess, phlegmon, sepsis, sialolith Evaluation: [suspect ongoing mild submandibular soft tissue infection based on history and exam, likely with worsening due to patients inadvertent medication noncompliance as well as poor glycemic control. After blood cultures were drawn the patient was given IV Unasyn, imaging (per my review) without evidence of gas , drainable fluid collection, or other critical abnormalities. Radiologist review of imaging without evidence of clinically significant abnormalities. Teaching provided regarding appropriate clindamycin dosing. Patient to follow up PCP tomorrow. Impression: infection. - Related Data Allergies Allergy/AdvReac Type Severity Reaction Status Date / Time No Known Allergies Allergy Verified 12/25/19 17:51 Home Meds: Home Meds Insulin NPH/Insulin Reg,Human [NovoLIN 70-30] 35 unit SUBCUT BIDAC 05/01/15 [ History] Insulin Regular, Human [Novolin R] 0 unit SQ QID 07/17/18 [History] Clindamycin HCl 450 mg PO Q8HR 12/25/19 [History] Past Medical History - Past Health History Medical/Surgical History: Denies Medical/Surgical History HEENT History: Reports: Other (See Below) Other HEENT History: broken/missing teeth; presently on tx for ludwigs angina Cardiovascular History: Reports: None Respiratory History: Reports: None Gastrointestinal History: Reports: None Genitourinary History: Reports: None Musculoskeletal History: Reports: Other (See Below) Other Musculoskeletal History: fx R acetabulum, rib fx - no sx; torn R rotator cuff Neurological History: Reports: None Psychiatric History: Reports: PTSD Endocrine/Metabolic History: Reports: Diabetes, Type I Hematologic History: Reports: None Oncologic (Cancer) History: Reports: None Dermatologic History: Reports: None - Infectious Disease History Infectious Disease History: Reports: MRSA - Past Surgical History HEENT Surgical History: Reports: Oral Surgery Endocrine Surgical History: Reports: None Musculoskeletal Surgical History: Reports: None Social & Family History - Family History Family Medical History: Noncontributory Cardiac: Reports: Other (See Below) Other Cardiac Family History: heart disease Neurological: Reports: CVA - Tobacco Use Smoking Status *Q: Current Every Day Smoker Years of Tobacco use: 15 Packs/Tins Daily: 0.5 - Caffeine Use Caffeine Use: Reports: Soda - Recreational Drug Use Recreational Drug Use: No ED ROS GENERAL - Review of Systems Review Of Systems: See Below ED EXAM, GENERAL - Physical Exam Exam: See Below Course - Vital Signs Last Recorded V/S: Last Vital Signs Temp 37.0 C 12/25/19 17:33 Pulse 83 12/25/19 17:33 Resp 18 12/25/19 17:33 BP 108/71 12/25/19 17:33 Pulse Ox 95 12/25/19 17:33 - Orders/Labs/Meds Orders: Active Orders 24 hr Category Date Time Status CULTURE BLOOD [BC] Stat Lab 12/25/19 17:45 Received CULTURE BLOOD [BC] Stat Lab 12/25/19 18:06 Received Blood Culture x2 Reflex Set [OM.PC] Stat Oth 12/25/19 17:41 Ordered Labs: Laboratory Tests 12/25/19 12/25/19 12/25/19 Range/Units 17:45 17:45 17:45 WBC 7.46 (4.0-11.0) K/uL RBC 4.46 L (4.50-5.90) M/uL Hgb 13.4 (13.0-17.0) g/dL Hct 41.7 (38.0-50.0) % MCV 93.5 (80.0-98.0) fL MCH 30.0 (27.0-32.0) pg MCHC 32.1 (31.0-37.0) g/dL RDW Std Deviation 46.4 (28.0-62.0) fl RDW Coeff of Deo 14 (11.0-15.0) % Plt Count 205 (150-400) K/uL MPV 11.90 (7.40-12.00) fL Neut % (Auto) 51.8 (48.0-80.0) % Lymph % (Auto) 36.2 (16.0-40.0) % Loup % (Auto) 7.4 (0.0-15.0) % Eos % (Auto) 4.2 (0.0-7.0) % Baso % (Auto) 0.4 (0.0-1.5) % Neut # (Auto) 3.9 (1.4-5.7) K/uL Lymph # (Auto) 2.7 H (0.6-2.4) K/uL Loup # (Auto) 0.6 (0.0-0.8) K/uL Eos # (Auto) 0.3 (0.0-0.7) K/uL Baso # (Auto) 0.0 (0.0-0.1) K/uL Nucleated RBC % 0.0 /100WBC Nucleated RBCs # 0 K/uL ESR 7 (0-19) mm/hr Lactate 1.6 (0.20-2.00) mmol/L Sodium (136-148) mmol/L Potassium (3.5-5.1) mmol/L Chloride (98-107) mmol/L Carbon Dioxide (21.0-32.0) mmol/L BUN (7.0-18.0) mg/dL Creatinine (0.8-1.3) mg/dL Est Cr Clr Drug Dosing Estimated GFR (MDRD) ml/min Glucose (74-106) mg/dL POC Glucose (60-110) mg/dL Calcium (8.5-10.1) mg/dL C-Reactive Protein (0.00-0.90) mg/dL 12/25/19 12/25/19 Range/Units 17:45 17:45 WBC (4.0-11.0) K/uL RBC (4.50-5.90) M/uL Hgb (13.0-17.0) g/dL Hct (38.0-50.0) % MCV (80.0-98.0) fL MCH (27.0-32.0) pg MCHC (31.0-37.0) g/dL RDW Std Deviation (28.0-62.0) fl RDW Coeff of Deo (11.0-15.0) % Plt Count (150-400) K/uL MPV (7.40-12.00) fL Neut % (Auto) (48.0-80.0) % Lymph % (Auto) (16.0-40.0) % Loup % (Auto) (0.0-15.0) % Eos % (Auto) (0.0-7.0) % Baso % (Auto) (0.0-1.5) % Neut # (Auto) (1.4-5.7) K/uL Lymph # (Auto) (0.6-2.4) K/uL Loup # (Auto) (0.0-0.8) K/uL Eos # (Auto) (0.0-0.7) K/uL Baso # (Auto) (0.0-0.1) K/uL Nucleated RBC % /100WBC Nucleated RBCs # K/uL ESR (0-19) mm/hr Lactate (0.20-2.00) mmol/L Sodium 142 (136-148) mmol/L Potassium 4.2 (3.5-5.1) mmol/L Chloride 106 (98-107) mmol/L Carbon Dioxide 26.2 (21.0-32.0) mmol/L BUN 14 (7.0-18.0) mg/dL Creatinine 1.0 (0.8-1.3) mg/dL Est Cr Clr Drug Dosing TNP Estimated GFR (MDRD) > 60.0 ml/min Glucose 191 H (74-106) mg/dL POC Glucose 189 H (60-110) mg/dL Calcium 8.3 L (8.5-10.1) mg/dL C-Reactive Protein 0.50 (0.00-0.90) mg/dL Meds: Medications Discontinued Medications Generic Name Dose Route Start Last Admin Trade Name Freq PRN Reason Stop Dose Admin Ampicillin Sodium/Sulbactam Sodium Confirm 12/25/19 18:13 12/25/19 18:28 Unasyn Administered 12/25/19 18:14 Not Given Dose 3 gm .ROUTE .STK-MED ONE Ampicillin Sodium/Sulbactam 100 mls @ 200 mls/hr 12/25/19 17:41 12/25/19 18: 24 Sodium 3 gm/ Sodium Chloride IV 12/25/19 18:10 200 mls/hr ONETIME ONE Administration Sodium Chloride 1,000 mls @ 1,000 mls/hr 12/25/19 17:41 12/25/19 17:58 Normal Saline IV 12/25/19 18:40 1,000 mls/hr .Bolus ONE Administration Sodium Chloride Confirm 12/25/19 18:12 12/25/19 18:28 Normal Saline Administered 12/25/19 18:13 Not Given Dose 100 mls @ as directed .ROUTE .STK-MED ONE Iopamidol 80 ml 12/25/19 18:40 12/25/19 18:41 Isovue Multipack-370 (76%) IVPUSH 12/25/19 18:41 80 ml ONETIME STA Administration Departure - Departure Time of Disposition: 19:08 Disposition: Home, Self-Care 01 Clinical Impression: Soft tissue infection - Discharge Information Referrals: PCP,None [Primary Care Provider] - Additional Instructions: You were in seen in the [facility] Emergency Department for evaluation of swelling under your chin, your found have ongoing firm and uncomfortable tissue, however no significant commands were noted on your labs, imaging, or vital signs. Please take your clindamycin as prescribed. This is 3 pills taken at once 3 times daily (9 pills per day total). Please read and follow all of the instructions below. Please follow up with your primary care physician tomorrow for repeat evaluation. When calling for follow-up care, please make the office aware that this follow-up is from your recent emergency room visit. If for any reason you are refused follow-up, please contact the [facility] Emergency Department at and asked to speak to the emergency department charge nurse. Your care today was limited to identifying and treating emergent medical problems only. Many people have subtle differences in their test results that require follow up with their outpatient physician(s) to correctly determine if this represents a normal variation or concerning abnormality with respect to your specific health. The care given to you today was limited to identifying and treating emergent medical problems - you need to request a copy of all of your medical records from today's visit and follow up with your outpatient physician(s) to review both today's visit and your overall health. If you have any new symptoms or if you are at all concerned about your health please return immediately to the emergency department. Prescriptions: If you are uninsured or have financial difficulties with filling your prescription(s), you may consider using a free pharmacy discount service such as [employer] ([employer]) or [facility] ([employer]). These services allow you to search for a medication on your phone (or computer) and obtain a coupon that usually has a significant discount from the list swartz at a pharmacy. Your physician as well as [facility] does not have a financial relationship with either of these services. You may also wish to speak with your physician to determine if lower cost prescriptions are possible. Obtaining primary care: 1. [facility] provides pediatrics (children), family medicine (children, adults, and some obstetrical care), and internal medicine (adults). Further specialty care is also available. Same day appointments are available. They may be contacted at [phone] and are open Tuesday through Tuesday 8 AM to [address] [facility] are located at [facility], [address] [place] [address]. 2. [facility] offers family medicine, internal medicine, womens health, and further specialty care. [facility] may be contacted at [phone]. [facility] is located at [address] [place] [address]. 3. If you have health insurance, please also contact your insurer for a list of accepting providers under your policy, you may contact these providers for further health care. Occupational health: Work related injuries may consider following up with [facility], . Occupational health services are located at [address] [place] [id number] and are open Tuesday through Tuesday from 7: 30 am to 5:00 pm. Obstetrical and Gynecological Care: [facility], , Tuesday through Tuesday 8 AM to 5 PM. [address] [place] [address]. Eyecare: If you have an eye injury you should follow up with your spin table operator or with [facility], at [phone] or [phone] , they are located at [address] [place] [address]. Dental Care Glenn Galvez DDS. [address] [place], [place]. Ph. [phone] Rush Galvez DDS [place]. [address] [facility] 104, [place], [place]. Ph. Leonard Menjivar DDS. 10 10/[address] [place] [address]. Ph. [phone] Oswaldo Stewart DDS. [address] [facility] 4 [place], [place]. Ph. [phone] Joaquim Sher DDS PC. [address] [facility] [address] [place], [place]. Ph. Marla Bonilla DDS. [address] [place] [address]. Ph. [phone] [facility]. [address] [place], [place]. Ph. [phone] [facility]. [address] [place] [address], [place], [place]. Ph. [phone] [facility] [address] [place] [address]. Ph. [phone] [facility]. [address] [place] [address] [address] [place], [place]. Ph. [facility]. [address] [place] Ph. Sepsis Event Note - Evaluation Sepsis Screening Result: No Definite Risk - Focused Exam Vital Signs: Vital Signs Temp Pulse Resp BP Pulse Ox 12/25/19 17:33 37.0 C 83 18 108/71 95 Date Exam was Performed: 12/25/19 Time Exam was Performed: 19:07 - My Orders Last 24 Hours: My Active Orders 12/25/19 17:41 Blood Culture x2 Reflex Set [OM.PC] Stat 12/25/19 17:45 CULTURE BLOOD [BC] Stat 12/25/19 18:06 CULTURE BLOOD [BC] Stat - Assessment/Plan Last 24 Hours: My Active Orders 12/25/19 17:41 Blood Culture x2 Reflex Set [OM.PC] Stat 12/25/19 17:45 CULTURE BLOOD [BC] Stat 12/25/19 18:06 CULTURE BLOOD [BC] Stat
[2019-12-25 19:09] VITALS: BP 102/62; PULSE 79
== END 2019-12-25 19:18 | disposition home or self-care (01) ==
LOC: MW.ED 17:20
DX: L08.9 Local infection of the skin and subcutaneous tissue, unspecified (principal); E10.9 Type 1 diabetes mellitus without complications; F17.210 Nicotine dependence, cigarettes, uncomplicated
CPT/HCPCS: 70491; 80048; 82962; 83605; 85025; 85652; 86140; 87040; 96361; 96365; 99284; J0295; J7030; J7050; Q9967